=== PATIENT | female | born 1990 | race Two or more races ===

== ENCOUNTER 2017-08-23 03:27 | Emergency (ER) | payer MEDICAID ==
[~2017-08-23] VITALS: Ht 167.6 cm; Wt 84.0 kg
[2017-08-23 03:35] VITALS: BP 141/81
== END 2017-08-23 10:09 | disposition left against medical advice (07) ==
LOC: ER 03:27
DX: Z53.21 Procedure and treatment not carried out due to patient leaving prior to being seen by health care provider (principal)

== ENCOUNTER 2018-04-16 02:39 | Emergency (ER) | payer MEDICAID ==
[~2018-04-16] VITALS: Ht 167.6 cm; Wt 56.0 kg
[2018-04-16] MEDS ORDERED: SODIUM CHLORIDE 0.9% 1,000 ML IV ONE (06:14)
[2018-04-16 07:05] LABS: CLARITY URINE CLEAR (CLEAR); COLOR URINE YELLOW (YELLOW); KETONES URINE TRACE (NEGATIVE); LEUKOCYTE ESTERASE URINE TRACE (NEGATIVE); NITRITE URINE NEGATIVE (NEGATIVE); OCCULT BLOOD URINE NEGATIVE (NEGATIVE); PROTEIN URINE NEGATIVE (NEGATIVE); SPECIFIC GRAVITY URINE 1.034 (1.005-1.030)
[2018-04-16 07:18] LABS: BASOPHILS % 0.9 % (0.0-2.0); EOSINOPHILS % 2.3 % (0.0-5.0); HEMOGLOBIN. 10.6 g/dL (12.0-16.0); LYMPHOCYTES % 40.1 % (20.0-50.0); MEAN CORPUSCULAR VOLUME 77.6 fL (81.0-99.0); MEAN PLATELET VOLUME 8.9 fl (7.4-10.4); MONOCYTES % 9.2 % (2.0-8.0); NEUTROPHILS % 47.5 % (40.0-76.0); PLATELET 240 x1000/uL (130-400); RED BLOOD CELL COUNT 4.25 mill/uL (4.2-5.4); RED CELL DISTRIBUTION WIDTH 16.8 % (11.6-14.6)
[2018-04-16 07:24] LABS: CHLORIDE 106 mEq/L (98-107)
[2018-04-16 07:30] LABS: *AMPHETAMINES SCREEN URINE NEGATIVE (NEGATIVE)
[2018-04-16 07:31] LABS: *BARBITURATES SCREEN URINE NEGATIVE (NEGATIVE); *BENZODIAZEPINES SCREEN URINE NEGATIVE (NEGATIVE); *COCAINE SCREEN URINE NEGATIVE (NEGATIVE); METHADONE URINE SCREEN NEGATIVE (NEGATIVE); OPIATES URINE SCREEN NEGATIVE (NEGATIVE); PHENCYCLIDINE URINE SCREEN NEGATIVE (NEGATIVE)
[2018-04-16 07:33] LABS: CANNABINOID URINE SCREEN PRESUMTIVE POSITIVE (NEGATIVE)
[2018-04-16 07:34] LABS: B-HCG QUANTITATIVE 930 mIU/mL (<3)
[2018-04-16] MEDS ORDERED: POTASSIUM CHLORIDE 20MEQ TABLET SR PO ONE (08:30)
[2018-04-16 08:45] VITALS: BP 107/67
== END 2018-04-16 09:46 | disposition home or self-care (01) ==
LOC: ER 02:39
DX: O20.0 Threatened abortion (principal); O23.31 Infections of other parts of urinary tract in pregnancy, first trimester; E87.6 Hypokalemia; Z98.890 Other specified postprocedural states; Z3A.01 Less than 8 weeks gestation of pregnancy
CPT/HCPCS: 36415; 76801; 76817; 80048; 80305; 81003; 81025; 84702; 85025; 86850; 86900; 86901; 87086; 99285; J7030; Z7610

== ENCOUNTER 2020-05-09 09:24 | Emergency (ER) | payer MEDICAID ==
[~2020-05-09] VITALS: Ht 165.1 cm; Wt 73.0 kg
[2020-05-09 10:04] LABS: BASOPHILS % 0.2 % (0.0-2.0); EOSINOPHILS % 0.5 % (0.0-5.0); HEMATOCRIT. 31.1 % (36.0-48.0); HEMOGLOBIN. 9.5 g/dL (12.0-16.0); LYMPHOCYTES % 13.6 % (20.0-50.0); MEAN CORPUSCULAR HEMOGLOBIN 21.9 pg (28.0-32.0); MEAN CORPUSCULAR VOLUME 71.2 fL (81.0-99.0); MEAN PLATELET VOLUME 8.5 fl (7.4-10.4); MONOCYTES % 4.9 % (2.0-8.0); NEUTROPHILS % 80.8 % (40.0-76.0); PLATELET 315 x1000/uL (130-400); RED BLOOD CELL COUNT 4.37 mill/uL (4.2-5.4); RED CELL DISTRIBUTION WIDTH 19.1 % (11.6-14.6)
[2020-05-09 10:11] LABS: CLARITY URINE CLEAR (CLEAR); COLOR URINE YELLOW (YELLOW); KETONES URINE NEGATIVE (NEGATIVE); LEUKOCYTE ESTERASE URINE NEGATIVE (NEGATIVE); NITRITE URINE NEGATIVE (NEGATIVE); OCCULT BLOOD URINE 1+ (NEGATIVE); PH URINE 5.5 (4.5-8.0); PROTEIN URINE NEGATIVE (NEGATIVE); SPECIFIC GRAVITY URINE 1.012 (1.005-1.030); UROBILINOGEN URINE 0.2 E.U./dL (0.2-1.0)
[2020-05-09 10:11] LABS: CHLORIDE 107 mEq/L (98-107)
[2020-05-09 10:14] LABS: INR 0.9; PROTHROMBIN TIME 9.7 sec (9.6-11.0)
[2020-05-09 10:20] LABS: HCG SCREEN NEGATIVE
[2020-05-09] MEDS ORDERED: KETOROLAC 60MG/2ML VIAL IM ONE (10:30)
[2020-05-09] MEDS ORDERED: KETOROLAC 15MG/ML VIAL IV NR (10:45)
[2020-05-09 12:20] VITALS: BP 104/66
== END 2020-05-09 12:35 | disposition home or self-care (01) ==
LOC: ER 09:24
DX: R10.33 Periumbilical pain (principal); R11.2 Nausea with vomiting, unspecified; F41.9 Anxiety disorder, unspecified; Z98.890 Other specified postprocedural states
CPT/HCPCS: 36415; 74176; 80053; 81003; 81025; 83690; 84703; 85025; 85610; 93005; 96374; 99285; J1885

== ENCOUNTER 2020-11-02 03:20 | Emergency (ER) | payer MEDICAID ==
[~2020-11-02] VITALS: Ht 182.9 cm; Wt 73.0 kg
[2020-11-02 03:27] VITALS: BP 127/82
[2020-11-02] MEDS ORDERED: OLANZAPINE 5MG TABLET ODT PO ONE (03:45)
== END 2020-11-02 05:06 | disposition home or self-care (01) ==
LOC: ER 03:20
DX: F43.10 Post-traumatic stress disorder, unspecified (principal); Z91.14 Patient's other noncompliance with medication regimen; Z98.890 Other specified postprocedural states; Z59.0 Homelessness
CPT/HCPCS: 99283

== ENCOUNTER 2020-12-04 03:57 | Emergency (ER) | payer MEDICAID ==
[~2020-12-04] VITALS: Ht 167.6 cm; Wt 70.0 kg
[2020-12-04 05:01] LABS: EOSINOPHILS % 1.9 % (0.0-5.0); HEMATOCRIT. 31.6 % (36.0-48.0); HEMOGLOBIN. 9.7 g/dL (12.0-16.0); LYMPHOCYTES % 31.6 % (20.0-50.0); MEAN CORPUSCULAR HEMOGLOBIN 22.2 pg (28.0-32.0); MEAN CORPUSCULAR VOLUME 72.5 fL (81.0-99.0); MEAN PLATELET VOLUME 8.4 fl (7.4-10.4); MONOCYTES % 9.2 % (2.0-8.0); NEUTROPHILS % 56.3 % (40.0-76.0); PLATELET 261 x1000/uL (130-400); RED BLOOD CELL COUNT 4.37 mill/uL (4.2-5.4); RED CELL DISTRIBUTION WIDTH 20.3 % (11.6-14.6)
[2020-12-04 05:07] LABS: CHLORIDE 107 mEq/L (98-107)
[2020-12-04 05:15] LABS: CLARITY URINE CLEAR (CLEAR); COLOR URINE YELLOW (YELLOW); KETONES URINE NEGATIVE (NEGATIVE); LEUKOCYTE ESTERASE URINE NEGATIVE (NEGATIVE); NITRITE URINE NEGATIVE (NEGATIVE); OCCULT BLOOD URINE TRACE (NEGATIVE); PROTEIN URINE NEGATIVE (NEGATIVE); SPECIFIC GRAVITY URINE 1.005 (1.005-1.030); UROBILINOGEN URINE 0.2 E.U./dL (0.2-1.0)
[2020-12-04 05:23] LABS: *BARBITURATES SCREEN URINE NEGATIVE (NEGATIVE); *BENZODIAZEPINES SCREEN URINE NEGATIVE (NEGATIVE)
[2020-12-04 05:24] LABS: *COCAINE SCREEN URINE NEGATIVE (NEGATIVE); CANNABINOID URINE SCREEN NEGATIVE (NEGATIVE); METHADONE URINE SCREEN NEGATIVE (NEGATIVE); OPIATES URINE SCREEN NEGATIVE (NEGATIVE); PHENCYCLIDINE URINE SCREEN NEGATIVE (NEGATIVE)
[2020-12-04 05:28] LABS: *AMPHETAMINES SCREEN URINE PRESUMTIVE POSITIVE (NEGATIVE)
[2020-12-04 05:40] LABS: HCG SCREEN NEGATIVE
[2020-12-04] MEDS ORDERED: POTASSIUM CHLORIDE 20MEQ TABLET SR PO ONE (06:00)
[2020-12-04] MEDS ORDERED: IOHEXOL-350 100 ML BOTTLE ONE (06:11)
[2020-12-04 07:30] VITALS: BP 123/68
== END 2020-12-04 19:08 | disposition home or self-care (01) ==
LOC: ER 03:57
DX: F15.129 Other stimulant abuse with intoxication, unspecified (principal); R07.89 Other chest pain; E87.6 Hypokalemia; D64.9 Anemia, unspecified; F41.9 Anxiety disorder, unspecified; J45.909 Unspecified asthma, uncomplicated; F43.10 Post-traumatic stress disorder, unspecified; F12.10 Cannabis abuse, uncomplicated; F17.210 Nicotine dependence, cigarettes, uncomplicated; Z98.890 Other specified postprocedural states
CPT/HCPCS: 36415; 71045; 71275; 80053; 80305; 81003; 81025; 83880; 84484; 84703; 85025; 85379; 86850; 86900; 86901; 93005; 99285; Q9967

== ENCOUNTER 2024-03-11 20:40 | Emergency (ER) | payer MEDICAID ==
[~2024-03-11] VITALS: Ht 165.1 cm; Wt 98.0 kg
[2024-03-11 21:17] VITALS: O2SAT 100
[2024-03-11] MEDS ORDERED: ACETAMINOPHEN 325MG TABLET PO PRN (23:45)
[2024-03-11 23:55] LABS: CHLORIDE 106 mEq/L (98-107); POTASSIUM 3.7 mEq/L (3.5-5.1); SODIUM 138 mEq/L (136-145)
[2024-03-11 23:56] LABS: CALCIUM 9.1 mg/dL (8.7-10.4); CARBON DIOXIDE 25 mEq/L (21-32); HEMATOCRIT. 27.3 % (36.0-48.0); HEMOGLOBIN. 8.2 g/dL (12.0-16.0); MEAN CORPUSCULAR HEMOGLOBIN 20.3 pg (28.0-32.0); MEAN CORPUSCULAR HGB CONC 30.1 g/dL (31.0-37.0); MEAN CORPUSCULAR VOLUME 67.6 fL (81.0-99.0); MEAN PLATELET VOLUME 8.3 fl (7.4-10.4); PLATELET 304 x1000/uL (130-400); RED BLOOD CELL COUNT 4.05 mill/uL (4.2-5.4); RED CELL DISTRIBUTION WIDTH 18.9 % (11.6-14.6)
[2024-03-12 00:01] LABS: CREATININE 0.8 mg/dL (0.6-1.0); GLUCOSE 92 mg/dL (70-105); UREA NITROGEN BLOOD 10 mg/dL (9-23)
[2024-03-12 00:03] LABS: ALANINE AMINOTRANSFERASE 12 IU/L (10-49); ALBUMIN 4.5 g/dL (3.2-4.8); ASPARTATE AMINOTRANSFERASE 21 IU/L (<34); BILIRUBIN TOTAL 0.3 mg/dL (0.1-1.0); PROTEIN TOTAL 7.8 g/dL (6.0-8.3)
[2024-03-12 00:06] LABS: CLARITY URINE CLEAR (CLEAR); COLOR URINE YELLOW (YELLOW); GLUCOSE URINE NEGATIVE (NEGATIVE); KETONES URINE TRACE (NEGATIVE); LEUKOCYTE ESTERASE URINE NEGATIVE (NEGATIVE); NITRITE URINE NEGATIVE (NEGATIVE); OCCULT BLOOD URINE NEGATIVE (NEGATIVE); PH URINE 6.5 (4.5-8.0); PROTEIN URINE NEGATIVE (NEGATIVE)
[2024-03-12 00:22] LABS: B-HCG QUANTITATIVE < 1 mIU/mL (<3)
[2024-03-12 00:28] LABS: DIFFERENTIAL COMMENT 1
[2024-03-12] MEDS ORDERED: FERR325T6 MT (01:11)
[2024-03-12 01:16] LABS: HYPOCHROMASIA 1+; MICROCYTOSIS 1+; PLATELET ESTIMATE NORMAL
[2024-03-12 01:31] VITALS: BP 143/98; PULSE 95; RESP 18; TEMP 98
== END 2024-03-12 01:33 | disposition home or self-care (01) ==
LOC: ER 20:40
DX: N93.8 Other specified abnormal uterine and vaginal bleeding (principal); F12.10 Cannabis abuse, uncomplicated; J45.909 Unspecified asthma, uncomplicated; Z98.890 Other specified postprocedural states
CPT/HCPCS: 36415; 76830; 76856; 80053; 81003; 84702; 85025; 86850; 86900; 99284